=== PATIENT | female | born 1960 | race Caucasian/White ===

== ENCOUNTER → 2023-07-24 08:31 | Outpatient (REF) | payer BC, SELFPAY | LOC: HWRAD 08:31 | PROVIDERS: ATTENDING PHYSICIAN Family Medicine | DX: K76.0 Fatty (change of) liver, not elsewhere classified (principal) | CPT/HCPCS: 76700 ==

== ENCOUNTER → 2024-09-22 14:57 | Outpatient (REF) | payer OTHER, SELFPAY | LOC: HWRAD 14:57 | PROVIDERS: ATTENDING PHYSICIAN Chiropractor; FAMILY PHYSICIAN Family Medicine | DX: S22.39XA Fracture of one rib, unspecified side, initial encounter for closed fracture (principal) | CPT/HCPCS: 71101 ==

== ENCOUNTER 2024-11-15 18:05 | Emergency (ER) | payer OTHER, SELFPAY ==
[2024-11-15 18:13] VITALS: BP 175/89
[2024-11-15 18:37] LABS: % Basophils 0.8 % (0-2); % Immature Granulocytes 0.4 % (0-0.5); % Lymphocytes 33.3 % (20.5-51.1); % Monocytes 7.6 % (1.7-9.3); % Neutrophils 55.9 % (42.2-75.2); Absolute Basophils 0.1 10^3/uL (0-0.2); Absolute Eosinophils 0.1 10^3/uL (0-0.7); Absolute Lymphocytes 2.4 10^3/uL (1.2-3.4); Absolute Monocytes 0.5 10^3/uL (0.1-0.6); Hematocrit 43.2 % (37.0-47.0); Hemoglobin 14.8 g/dL (12.0-16.0); Mean Corp Hgb Conc. 34.3 g/dL (33.0-37.0); Mean Corpuscular Hgb 31.5 pg (27.0-31.0); Mean Corpuscular Volume 91.9 fL (81.0-99.0); Nucleated Red Blood Cells % 0 %; Platelet Count 297 10^3/uL (130-400); Red Cell Dist. Width 12.2 % (11.5-14.5); White Blood Cell Count 7.1 10^3/uL (4.8-10.8)
[2024-11-15 18:47] LABS: APTT 30.1 Sec (23.4-35.0)
[2024-11-15 18:55] LABS: ALT (SGPT) 42 U/L (0-35); AST (SGOT) 29 U/L (14-36); Albumin 5.1 g/dl (3.5-5.0); Alkaline Phosphatase 80 U/L (38-126); Blood Urea Nitrogen 17 mg/dl (7-17); Calcium 10.6 mg/dl (8.4-10.2); Carbon Dioxide 23 mmol/L (22-30); Chloride 107 mmol/L (98-107); Glucose 94 mg/dl (70-99); Potassium 4.2 mmol/L (3.5-5.1); Sodium 140 mmol/L (135-145); Total Bilirubin 0.7 mg/dl (0.2-1.3); Total Protein 7.7 g/dl (6.3-8.2); eGFR > 60.00
[2024-11-15 19:00] LABS: NT-proBNP < 20.0 pg/ml; Troponin I < 0.012 ng/ml
[2024-11-15 19:52] LABS: D-Dimer < 0.27 ug/mlFEU (0.00-0.50)
[2024-11-15 19:55] VITALS: BP 134/83
[2024-11-15 20:00] VITALS: BP 128/79
--- NOTE | 2024-11-15 20:15 | ED.GENMED ---
History of Present Illness
General
Chief Complaint: Cardiac Symptoms
Time Seen by Provider: 11/15/24 19:33
History of Present Illness
History of Present Illness:
Patient is a 64-year-old woman with history of hyperlipidemia presenting to the emergency department with chest pain. Patient states that since yesterday she has had left-sided chest pain under her breast. It is not exertional. It is pleuritic.
She does have history of pleurisy. She did take Tums without relief. No family history of cardiac disease or blood clot. No personal history of blood clot. She is not on hormone replacement therapy. She did recently travel to [place] about 2
weeks ago. No shortness of breath. No nausea vomiting. No belly pain. No recent illnesses.
Past History
Past History
ED Past Medical History: None
ED Past Surgical History: Gynecological
Social History
Tobacco: Non-smoker
Alcohol: Occasional
Drug: None
Personal:
Living: with family
Phy Exam
Physical Exam
Physical Exam:
GENERAL: in no acute distress
HEENT: normocephalic, extraocular movements intact, moist oral mucosa
NECK: normal inspection
RESPIRATORY: no respiratory distress, clear to auscultation bilaterally
CARDIOVASCULAR: regular rate and rhythm
ABDOMEN/: soft, non-distended, non-tender to palpation, no rebound or guarding
EXTREMITIES: non-tender, no edema/swelling
NEUROLOGIC: awake and alert, moves all extremities
SKIN: warm, no rash
Scores
PE Wells Score
Symptoms of DVT: No
No alternative diagnosis better explains the illness: No
Tachycardia with pulse > 100: No
Immobilization (>=3 days) or surgery within previous 4 weeks: Yes
Prior history of DVT or pulmonary embolism: No
Presence of hemoptysis: No
Presence of malignancy: No
Pulmonary Embolism Risk Score: 1.5
Probability of PE: Pt is low risk
Course
Orders/Labs/Results
Orders:
Orders
11/15/24 18:06
EKG [Electrocardiogram (*1)] Urgent
Reason for Study: Chest Pain
EKG- Treatment ONCE
11/15/24 18:28
Complete Blood Count/With Diff Urgent
Comprehensive Metabolic Panel Urgent
D-Dimer Urgent
Comment: ADDON
NT-proBNP Urgent
PTT Urgent
Troponin I Urgent
11/15/24 19:33
Add On- LAB Urgent
Tests Added?: dimer
11/15/24 20:14
Ketorolac [Toradol] 15 mg IM NOW STA
CR Chest - 2 Views Urgent
Comment:
Reason For Exam: chest pain
11/15/24 20:24
UA Reflex to Culture [Urinalysis Reflex To Culture] Urgent
Date Specimen was Collected: 11/15/24
Time Specimen was Collected: 20:24
Abnormal Lab Results
11/15/24
18:28
MCH 31.5 H pg
(27.0-31.0)
Calcium 10.6 H mg/dl
(8.4-10.2)
ALT 42 H U/L
(0-35)
Albumin 5.1 H g/dl
(3.5-5.0)
11/15/24 18:28
11/15/24 18:28
Vital Signs
Initial and Last Documented VS:
Initial Vital Signs
Temp Pulse Resp BP Pulse Ox
97.8 F 77 20 175/89 99
11/15/24 18:13 11/15/24 18:13 11/15/24 18:13 11/15/24 18:13 11/15/24 18:13
Last Documented Vital Signs
Temp Pulse Resp BP Pulse Ox
97.8 F 77 20 175/89 99
11/15/24 18:13 11/15/24 18:13 11/15/24 18:13 11/15/24 18:13 11/15/24 18:13
MDM/Problems Addressed
Differential Diagnosis Includes:
Patient is 64-year-old woman with history of hyperlipidemia presenting to the emerged from left-sided chest pain since yesterday that is pleuritic. On arrival vitals unremarkable exam is reassuring. Differential is broad but symptoms of atypical
ACS versus PE versus MSK pain. Blood work obtained prior to evaluation is unremarkable. Patient is not hypoxic or tachycardic and has no signs of PE or DVT. She is low risk by Wells. Will add on D-dimer and chest x-ray EKG per my interpretation
normal sinus rhythm. Will administer Toradol as well.
*Critical Care Note
Total Time (30-74mins, 75-104mins- exclusive of procedures): Not Applicable
Update Note
Update Note:
On reevaluation her pain has significantly improved and is almost resolved after the Toradol. Dimer is negative. Chest x-ray per my interpretation with no obvious infiltrate or pneumothorax. Will discharge at this time. Strict return precautions
given.
ED Attending Note
-
Portions of this chart may have been created with voice recognition software.� Occasional wrong word or��sound alike� substitutions may have occurred due to the inherent limitations of voice recognition software.
Discharge Plan
Departure
Patient Disposition: Home (Routine Discharge)
Date of Disposition: 11/15/24
Time of Disposition: 21:49
Patient with high blood pressure during this ER visit?: No
Discharge Problem:
Chest pain, Pleurisy
Instructions: Chest Pain (DC)
Prescriptions:
No Action
plecanatide [Trulance] 3 MG tablet
1 tab PO DAILY
cyanocobalamin (vitamin B-12) 1,000 MCG tablet
1,000 mcg PO DAILY
omeprazole 20 MG capsule,delayed release(DR/EC)
20 mg PO DAILY
azelastine 1 SPRAY aerosol,spray
2 sprays intranasal PRN PRN (Reason: CONGESTION)
rosuvastatin 20 MG tablet
20 mg PO DAILY
Vitamin D3 (cholecalciferol): 5,000 UNITS
5,000 units PO DAILY
Referrals:
UNKNOWN - PT DOES,NOT KNOW [Family Provider]
Activity Restrictions/Additional Instructions:
You were evaluated in the Emergency Department today for chest pain. Your evaluation has shown no signs of medical conditions requiring emergent intervention at this time, however we recommend that you follow up with your primary care physician or
your construction director as soon as possible for further testing as an outpatient.
Please schedule an appointment for follow up with your primary care physician as soon as possible.
Return to the Emergency Department if you experience worsening or uncontrolled chest pain, shortness of breath, light headedness, feeling faint, nausea, vomiting, or any other concerning symptoms.
Thank you for choosing us for your care.
Interventions
Interventions:
*General Assessment Last Done: 11/15/24 18:13
Discharge Date and Time
Print Language: MALAY
[2024-11-15] MEDS: TORADOL 15 MG IM (20:25)
[2024-11-15 22:42] LABS: Urine Albumin Negative (Neg - Trace); Urine Bilirubin Negative (Negative); Urine Character Clear (Clear); Urine Color Yellow; Urine Glucose Negative (Negative); Urine Ketone Negative (Negative); Urine Leukocyte Negative (Negative); Urine Nitrite Negative (Negative); Urine Occult Blood Negative (Negative); Urine Specific Gravity 1.025 (<1.030); Urine Urobilinogen Negative (Neg - 1+)
== END 2024-11-15 22:29 | disposition home or self-care (01) ==
LOC: EMR 18:05
PROVIDERS: Emergency Medicine; EMERGENCY PHYSICIAN Student in an Organized Health Care Education/Training Program; FAMILY PHYSICIAN Family Medicine
DX: R07.89 Other chest pain (principal); R09.1 Pleurisy; E78.00 Pure hypercholesterolemia, unspecified
CPT/HCPCS: 99283; 96372; 71046; 80053; 81003; 83880; 84484; 85025; 85379; 85730; 93005